=== PATIENT | female | born 1980 | race American Indian/Alaskan Native ===

== ENCOUNTER 2017-08-17 14:02 | Outpatient (CLI) | payer MEDICAID ==
--- NOTE | 2017-08-17 14:27 | XRay Report ---
ROUTINE CHEST, TWO VIEWS: History: Preop clearance. PA and lateral views demonstrate the heart and mediastinal contour to be of normal size and shape. The lungs are clear and fully expanded and the soft tissues and bony structures are normal. IMPRESSION: Normal study.
== END 2017-08-17 14:03 | disposition home or self-care (01) ==
LOC: XRAY 14:02
PROVIDERS: ATTEND Specialist
DX: Z01.818 Encounter for other preprocedural examination (principal)
CPT/HCPCS: 71046

== ENCOUNTER 2017-10-05 06:57 | Day surgery (SDC) | payer MEDICAID ==
--- NOTE | 2017-10-05 09:33 | Anesthesia Day of Surgery ---
Anesthesia Day of Surgery - Day of Surgery Patient Examined: Yes Patient H&P Reviewed: Yes Patient is NPO: Yes
--- NOTE | 2017-10-05 09:33 | Anesthesia Consultation ---
Anesthesia Consult and Med Hx Date of service: 10/05/17 - Airway Anesthetic Teeth Evaluation: Good, Chipped (small chip of front left central incisor ) ROM Head & Neck: Adequate Mental/Hyoid Distance: Adequate Mallampati Class: Class II Intubation Access Assessment: Probably Good - Pulmonary Exam CTA: Yes - Cardiac Exam Cardiac Exam: RRR - Pre-Operative Health Status ASA Pre-Surgery Classification: ASA3 Proposed Anesthetic Plan: MAC - Cardiovascular System Hx Hypertension: Yes - Gastrointestinal Hx Gastroesophageal Reflux Disease: Yes - Other Systems Hx Obesity: Yes
[2017-10-05] MEDS ORDERED: NACL 0.9% 1000 ML 1,000 ML ONE (09:40)
[2017-10-05] MEDS ORDERED: NACL 0.9% 1000 ML 1,000 ML IV SCH (10:00)
[2017-10-05] MEDS ORDERED: XYLOCAINE MPF 2% ONE (10:00)
[2017-10-05] MEDS ORDERED: WATER FOR IRRIG STERILE IR ONE ×2 (10:35→16:49)
[2017-10-05] MEDS ORDERED: HURRICAINE ONE 20% TOPICAL SPRAY MM ×2 (10:47→11:50)
[2017-10-05] MEDS ORDERED: DIPRIVAN 10 MG/ML IV ONE (11:36)
[2017-10-05 12:39] VITALS: BP 123/69
--- NOTE | 2017-10-05 14:19 | Post Anesthesia Evaluation ---
- Post Anesthesia Evaluation Patient Participated: Yes Airway Patent: Yes Stable Respiratory Function: Yes Nausea/Vomiting: No Temp > 96.8F: Yes Pain Manageable: Yes Adequeate Hydration: Yes Anesthesia Complications: No Block Receding Appropriately: Not Applicable
== END 2017-10-05 06:58 | disposition home or self-care (01) ==
LOC: GIO 06:57
PROVIDERS: ATTEND Specialist
DX: K44.9 Diaphragmatic hernia without obstruction or gangrene (principal); K21.0 Gastro-esophageal reflux disease with esophagitis; I10 Essential (primary) hypertension; E66.01 Morbid (severe) obesity due to excess calories; G47.33 Obstructive sleep apnea (adult) (pediatric); Z68.43 Body mass index [BMI] 50.0-59.9, adult; Z98.890 Other specified postprocedural states
CPT/HCPCS: 43235; 81025; J2704; J7030